=== PATIENT | male | born 1995 | race Two or more races ===

== ENCOUNTER 2022-08-25 18:37 | Emergency (ER) | payer SELFPAY ==
[~2022-08-25] VITALS: Ht 182.9 cm; Wt 100.0 kg
[2022-08-25] MEDS ORDERED: ACETAMINOPHEN 325 MG TAB PO ONE (19:45)
[2022-08-25] MEDS ORDERED: IBUP800T27 PO (21:09)
[2022-08-25 22:44] VITALS: BP 138/64
== END 2022-08-25 23:04 | disposition home or self-care (01) ==
LOC: ER 18:40
DX: S62.304A Unspecified fracture of fourth metacarpal bone, right hand, initial encounter for closed fracture (principal); W22.01XA Walked into wall, initial encounter; Y93.89 Activity, other specified; Y92.89 Other specified places as the place of occurrence of the external cause; Y99.8 Other external cause status
CPT/HCPCS: 29125; 73130